=== PATIENT | female | born 1995 | race Caucasian/White ===

== ENCOUNTER 2017-05-11 21:27 | Emergency (ER) | payer OTHER ==
[~2017-05-11] VITALS: Ht 170.2 cm; Wt 72.6 kg
[2017-05-11 21:30] VITALS: BP 134/76
[2017-05-11] MEDS ORDERED: SULF1TAB24 PO (21:57)
--- NOTE | 2017-05-11 21:57 | PHYS DOC ---
Past Medical History Past Medical History: No Pertinent History Past Surgical History: No Surgical History Alcohol Use: None Drug Use: None Adult General Chief Complaint Chief Complaint: ABSCESS HPI HPI Patient is a 21 year old female presents to emergency department stating that she has an area on the inside of her left thigh that is red warm and tender to touch. She states she's had this for the last 2 days. She denies any fever, chills or any nausea vomiting. She denies any drainage or discharge coming from the site. Patient does state her tetanus immunization is up-to-date. Review of Systems Review of Systems Constitutional: Denies fever or chills [] Eyes: Denies change in visual acuity, redness, or eye pain [] HENT: Denies nasal congestion or sore throat [] Respiratory: Denies cough or shortness of breath [] Cardiovascular: No additional information not addressed in HPI [] GI: Denies abdominal pain, nausea, vomiting, bloody stools or diarrhea [] : Denies dysuria or hematuria [] Musculoskeletal: Denies back pain or joint pain [] Integument: Denies rash or skin lesions. Red warm and tender area to the left inner thigh Neurologic: Denies headache, focal weakness or sensory changes [] Endocrine: Denies polyuria or polydipsia [] Allergies Allergies Allergies Coded Allergies Type Severity Reaction Last Updated Verified No Known Drug Allergies 05/11/17 No Physical Exam Physical Exam Constitutional: Well developed, well nourished, no acute distress, non-toxic appearance. [] HENT: Normocephalic, atraumatic, bilateral external ears normal, oropharynx moist, no oral exudates, nose normal. [] Eyes: PERRLA, EOMI, conjunctiva normal, no discharge. [] Neck: Normal range of motion, no tenderness, supple, no stridor. [] Cardiovascular:Heart rate regular rhythm, no murmur [] Lungs & Thorax: Bilateral breath sounds clear to auscultation [] Skin: Warm, dry, no erythema, no rash. Left lateral part of the thigh has an area that is red warm and tender to touch that has the size of pea in the area that is indurated Back: No tenderness Extremities: No tenderness, no cyanosis, no clubbing, ROM intact, no edema. [] Neurologic: Alert and oriented X 3, normal motor function, normal sensory function, no focal deficits noted. [] Psychologic: Affect normal, judgement normal, mood normal. [] Current Patient Data Vital Signs Vital Signs Date Time Temp Pulse Resp B/P (MAP) Pulse Ox O2 Delivery O2 Flow Rate FiO2 05/11/17 21:30 99.4 98 16 97 Room Air 99.4 EKG EKG [] Radiology/Procedures Radiology/Procedures [] Course & Med Decision Making Course & Med Decision Making Pertinent Labs and Imaging studies reviewed. (See chart for details) Site was cleaned with alcohol with a #18-gauge needle used to incise the area with thick yellow drainage noted from the site. He was placed over the area. Discharge instructions was provided to patient and parent which included warm moist packs to the area several times a day 20 minutes at a time, ibuprofen or Tylenol for pain and discomfort. Also recommended keeping the area clean and dry. Antibiotics as prescribed. Patient was encouraged follow-up with primary care physician in the next 3-5 days if the site begins to look worse. Signs symptoms to return back to emergency department as been provided. Patient be discharged home in stable condition [] Dragon Disclaimer Dragon Disclaimer This electronic medical record was generated, in whole or in part, using a voice recognition dictation system. Departure Departure Impression: Primary Impression: Abscess Disposition: 01 HOME, SELF-CARE Condition: STABLE Referrals: HERNANDO COY MD (PCP) Patient Instructions: Abscess, [id number] Additional Instructions: Keep the area clean and dry. Clean the site with soap and water twice a day and apply antibiotic ointment to the site. Warm moist packs to the area 5 times a day for 20 minutes at a time. Antibiotics as prescribed. Patient take all the antibiotics as prescribed to prevent further infection. Tylenol or ibuprofen for pain and discomfort. Follow-up to primary care physician in the next 3-5 days if the area looks worse. Return back to emergency prior signs symptoms of become worse. Scripts Sulfamethoxazole/Trimethoprim (BACTRIM DS TABLET) 1 Each Tablet 1 TAB PO BID, #20 TAB Prov: COLTEN GONZALEZ APRN 05/11/17 COLTEN GONZALEZ APRN May 11, 2017 21:57
== END 2017-05-11 22:04 | disposition home or self-care (01) ==
LOC: ER 21:27
DX: L02.416 Cutaneous abscess of left lower limb (principal)
CPT/HCPCS: 10060; 99283-25

== ENCOUNTER → 2017-07-13 | Outpatient (CLI) | payer OTHER ==
[~2017-07-13] MED LIST: SULF1TAB24 PO
--- NOTE | 2017-07-13 16:13 | KCIC ---
PELVIS LIMITED OR FOLLOW UP History: History of fibroids, painful and irregular periods Comparison: None. Findings: Multiple transabdominal sonographic images of the pelvis are submitted. Uterus measured 7.2 x 3.5 x 4.8 cm. The endometrium is not well-visualized due to bowel gas. Neither ovary could be visualized. No significant free fluid is demonstrated. Patient could not tolerate transvaginal imaging. Impression: 1. Exam is limited, no obvious abnormality of the uterus although endometrium not well visualized due to bowel gas. Neither ovary could be visualized. Electronically signed by: Carlos Coyle MD (07/13/2017 4:09 PM) [id number]
== END | disposition home or self-care (01) ==
LOC: KCIC US 15:23
PROVIDERS: ATTEND Physician Assistant
DX: N92.6 Irregular menstruation, unspecified (principal)
CPT/HCPCS: 76857